=== PATIENT | male | born 1970 | race Caucasian/White ===

== ENCOUNTER 2019-06-02 19:13 | Emergency (ER) | payer SELFPAY ==
[~2019-06-02] VITALS: Ht 154.9 cm; Wt 68.0 kg
[2019-06-02 20:25] VITALS: BP 107/80
--- NOTE | 2019-06-02 20:28 | NUR ---
TO [facility] A/W BED AMBULATORY. NASAL SWAB DONE AND SENT TO LAB
[2019-06-02] MEDS ORDERED: ACETAMINOPHEN EXTRA STRENGTH 500 MG TAB PO ONE (20:35)
--- NOTE | 2019-06-02 21:04 | NUR ---
PT AMBULATED TO BED 12
--- NOTE | 2019-06-02 21:10 | NUR ---
48 Y/O MALE C/O ABD PAIN, NAUSEA, AND FEVER X 1 DAY. ABD SOFT, ROUND, AND TENDER TO PALP. BOWEL SOUNDS PRESENT X 4 QUARD. LAST BM TODAY, STATES IT WAS NORMAL CONSISTENCY. DENIES COUGH/CONGESTION. RR EVEN AND UNLABORED. PT LAYING IN BED POSITIONED FOR COMFORT. VSS. FAMILY MEMBER AT BEDSIDE. MEDHX: DENIES ALLERGIES: NKA
[2019-06-02] MEDS ORDERED: ONDANSETRON 4 MG/2 ML VIAL IVP ONE (21:35)
[2019-06-02] MEDS ORDERED: KETOROLAC 30 MG/ML VIAL IVP ONE (21:35)
[2019-06-02] MEDS ORDERED: NACL 0.9% 1,000 ML IV ONE ×2 (21:35)
--- NOTE | 2019-06-02 22:12 | NUR ---
PT RESTING IN BED, PLACED ON MONITOR. FAMILY AT BEDSIDE. VSS. WILL CONTINUE TO MONITOR.
[2019-06-02 22:30] LABS: BASOPHILS % (AUTO) 0.2 % (0.0-2.0); HEMATOCRIT 41.2 % (36-52); LYMPHOCYTES # (AUTO) 1.1 K/uL (2.0-11.5); MEAN CORPUSCULAR HEMOGLOBIN 30 pg (27-31); MEAN CORPUSCULAR HGB CONC 34 g/dL (33-37); MEAN CORPUSCULAR VOLUME 86.5 fL (80-94); MONOCYTES # (AUTO) 1.1 K/uL (0.8-1.0); MONOCYTES % (AUTO) 5.6 % (1.7-9.3); NEUTROPHILS % (AUTO) 88.3 % (42.2-75.2); PLATELET COUNT (AUTO) 314 K/uL (140-450); RED BLOOD CELL COUNT(AUTO) 4.77 MIL/uL (4.20-6.10); RED CELL DISTRIBUTION WIDTH 12.4 % (11.6-13.7)
--- NOTE | 2019-06-02 22:32 | NUR ---
PT STATES DECREASE IN PAIN, 0/10 S/P MEDICATION. PT ALSO DENIES NAUSEA. PLACED ON 1L NC, O2 SAT 88 ON RA
[2019-06-02 22:39] LABS: APPEARANCE,URINE CLOUDY (CLEAR); BILIRUBIN,URINE NEGATIVE (NEGATIVE); BLOOD, URINE NEGATIVE (NEGATIVE); COLOR,URINE YELLOW (YELLOW); LEUKOCYTE ESTERASE ,URINE NEGATIVE (NEGATIVE); NITRITE, URINE NEGATIVE (NEGATIVE); PH,URINE 8.5 (5.0-9.0); UGLUCOSE NEGATIVE (NEGATIVE)
[2019-06-02 22:47] LABS: ANION GAP 12.5 (8-16); CARBON DIOXIDE 22.8 mmol/L (21-32); CREATININE 0.9 mg/dL (0.7-1.3); POTASSIUM 3.3 mmol/L (3.5-5.1)
[2019-06-02 22:56] LABS: ALBUMIN 3.7 g/dL (3.4-5.0); TOTAL BILIRUBIN 1.7 mg/dL (0.0-1.0)
[2019-06-02 23:23] LABS: LYMPHOCYTES % (AUTO) 5.9 % (20.5-51.1); WHITE BLOOD COUNT (AUTO) 19.2 K/uL (4.8-10.8)
--- NOTE | 2019-06-03 00:11 | NUR ---
PT TO CT VIA WHEELCHAIR
--- NOTE | 2019-06-03 00:21 | NUR ---
PT RETURNED FROM CT VIA WHEELCHAIR.
--- NOTE | 2019-06-03 01:00 | NUR ---
RESTING IN BED WITH EYES CLOSED, VISIBLE RISE AND FALL OF THE CHEST. DENIES PAIN. AT BEDSIDE. VSS. WILL CONTINUE TO MONITOR
[2019-06-03 02:43] VITALS: BP 107/80
--- NOTE | 2019-06-03 02:44 | NUR ---
Patient discharged with v/s stable. Written and verbal after care instructions given and explained. Patient alert, oriented and verbalized understanding of instructions. Ambulatory with steady gait. All questions addressed prior to discharge. ID band removed. Patient advised to follow up with PMD. Rx of NAPROSYN, BENTYL, AND ZOFRAN given. Patient educated on indication of medication including possible reaction and side effects. Opportunity to ask questions provided and answered.
--- NOTE | 2019-06-04 05:38 | NUR ---
CALLED BOTH PRIMARY AND ALTERNATIVE PHONE NUMBERS TO ASK PT TO RETURN TO ER OR CLOSES ER FOR RETURN TREATMENT. GRAM POSITIVE COCCII IN CHAINS. DR FENG NOTIFIED AND INSTRUCTS TO CONTACT PT FOR RETURN TREATMENT. UNABLE TO LEAVE PHONE MESSAGE D/T VOICE MALE BEING FULL.
== END 2019-06-03 02:43 | disposition home or self-care (01) ==
LOC: MED 19:13
DX: R10.9 Unspecified abdominal pain (principal); R50.9 Fever, unspecified
CPT/HCPCS: 36415; 71045; 74176; 80053; 81003; 83605; 83690; 85025; 87040; 87086; 87804; 96361; 96374; 96375; 99284; J1885; J2405; J7030; Q0092